=== PATIENT | male | born 1990 | race Caucasian/White ===

== ENCOUNTER 2020-07-22 08:43 | Outpatient (CLI) | payer OTHER, SELFPAY ==
--- NOTE | ~2020-07-22 | XR_ITS ---
EXAMINATION: XR barium swallow EXAM DATE: 07/22/2020 09:40 INDICATION: Dysphagia, gastroesophageal reflux disease. TECHNIQUE: Standard thick followed by thin contrast barium esophagram examination was performed. The DAP for this procedure was 1.5 Gycm2. There is no prior study for comparison. FINDINGS: The pharynx is symmetric and without evidence of mass lesion or mucosal irregularity. Ther e is no esophageal stricture or mass identified. There are no esophageal diverticula. Gastroesophag eal junction is normal in appearance. IMPRESSION: Normal exam. Reviewed, dictated and finalized at location A. INE ATTENDANT IMPRESSION: Normal exam.
== END 2020-07-22 08:44 | disposition home or self-care (01) ==
PROVIDERS: PCP Family Medicine Adolescent Medicine
DX: R13.12 Dysphagia, oropharyngeal phase (principal)
CPT/HCPCS: 74220

== ENCOUNTER → 2020-09-14 10:44 | Outpatient (CLI) | payer OTHER, SELFPAY ==
--- NOTE | ~2020-09-14 | US_ITS ---
US right upper quadrant INDICATION: Nausea and cramping. Reflux. PROCEDURE: Realtime right upper abdominal ultrasound. COMPARISON: CT dated 10/05/2016 FINDINGS: The pancreas is normal without focal mass or pancreatic ductal dilation. Liver echotexture is normal without focal mass or intrahepatic biliary dilatation. There is normal directional flow i n the portal vein. The gallbladder is normal without stones, gallbladder wall thickening or pericholecystic fluid. Comm on bile duct measures 3 mm. No sonographic Beltran's sign. Right renal echotexture is unremarkable. IMPRESSION: 1: Normal limited abdominal ultrasound. Reviewed, dictated and finalized at location B.
== END ==
PROVIDERS: PCP Family Medicine Adolescent Medicine
DX: R11.0 Nausea (principal)
CPT/HCPCS: 76705

== ENCOUNTER 2023-03-25 10:52 | Emergency (ER) | payer OTHER, SELFPAY ==
[2023-03-25 10:56] VITALS: BP 135/84; PULSE 109; RESP 20; TEMP 37.3; O2SAT 96
--- NOTE | 2023-03-25 11:37 | ED.URI ---
HPI - URI/Sore Throat General Chief Complaint: Upper Respiratory Infection Stated Complaint: respiratory Time Seen by Provider: 03/25/23 11:37 Source: patient Mode of arrival: ambulatory Limitations: no limitations History of Present Illness HPI Narrative: 32-year-old male presented for complaint of headache, body aches, sinus pressure/congestion, cough, fever/chills. onset 5 days. States he feels sob with exertion like going up stairs or with coughing fits. Endorses daughter has similar symptoms. Denies wheezing, n/v/d. Taking Sudafed, Mucinex, NyQuil for symptoms. Related Data Allergies Allergy/AdvReac Type Severity Reaction Status Date / Time hydrocodone AdvReac Severe Nausea and Verified 03/25/23 11:12 Vomiting Review of Systems Review of Systems: CONSTITUTIONAL: Reportbody aches, fever, chills, or sweats. EYES: Denies visual changes, redness, or discharge. ENT: reports rhinorrhea, congestion, denies sore throat, or otalgia. CARDIOVASCULAR: Denies chest pain, palpitations, or edema. RESPIRATORY: Reports cough, sob,denies wheezing. GASTROINTESTINAL: Denies abdominal pain, nausea, vomiting, or diarrhea. GENITOURINARY: Denies dysuria or hematuria. SKIN: Denies rash, itching, or wounds. MUSCULOSKELETAL: Denies back pain, joint pain, or myalgia. NEUROLOGIC: Denies numbness, tingling, or weakness. All systems reviewed & are unremarkable except as noted in HPI and below PMFSH Past Medical History Medical History (Updated 03/25/23 @ 12:06 by Amy Peres APRN) Anxiety disorder, unspecified Social History Social History Smoking status: Former smoker Tobacco type: cigarettes Smoking end date: 05/20/12 Alcohol intake: current Drinks per week: 3 Alcohol use details: weekends Substance use: never Lack of Transportation: No Lack of Food: Never True Current Housing: I Have Housing Concerned About Future Housing: No Difficulty Paying Gas/Electric Bills: No Difficulty Paying for Meds: No Currently Unemployed: No Education: Bachelor's Degree Difficulty w/ Childcare or Family Care: No Living arrangements: with family Additional living arrangements comments: and daughter Occupation/Education: occupation 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 Please see nursing chart for further information. There is no relevant family history pertinent to the presenting complaint Exam Narrative: GENERAL: mildly ill-appearing, in no acute distress. EYES: EOMI. No redness or drainage. Conjunctivae normal. ENT: Mucous membranes pink and moist. No rhinorrhea. TMs normal bilaterally. Throat erythematous. Uvula midline. NECK: Normal AROM. Supple. CHEST: No respiratory distress. Lungs clear to all shaver. HEART: Regular rate and rhythm. No murmur appreciated. ABDOMEN: Soft, nontender, nondistended, normal active bowel sounds. EXTREMITIES: Normal range of motion. No edema. SKIN: Warm, dry, no rash. Capillary refill normal. Normal skin turgor. NEURO: Alert and oriented x3. Gait steady. PSYCH: Normal affect. Course Course Emergency Course: Patient is aware of diagnosis, understands and agrees to treatment plan. Anticipatory guidance given. Patient agrees to follow-up as directed and is aware of reasons to seek care at the emergency department. Portions of this record may have been created with voice recognition software Level of Care: Express Care Visit Vital Signs Vital signs: Vital Signs Temperature 99.2 F 03/25/23 10:56 Pulse Rate 109 H 03/25/23 10:56 Respiratory Rate 20 03/25/23 10:56 Blood Pressure 135/84 03/25/23 10:56 Pulse Oximetry 96 03/25/23 10:56 Oxygen Delivery Room Air 03/25/23 10:56
== END 2023-03-25 12:10 | disposition home or self-care (01) ==
PROVIDERS: Emergency Provider Nurse Practitioner Family; PCP Family Medicine Adolescent Medicine
DX: B34.9 Viral infection, unspecified (principal); Z20.822 Contact with and (suspected) exposure to COVID-19; Z87.891 Personal history of nicotine dependence
CPT/HCPCS: 87426; 99213; C9803; G0463

== ENCOUNTER → 2023-04-16 15:56 | Outpatient (CLI) | payer OTHER, SELFPAY ==
--- NOTE | ~2023-04-16 | XR_ITS ---
EXAMINATION: XR chest 2V 04/16/2023 16:32 INDICATION: Cough with pleuritic pain PROCEDURE: 2 view chest COMPARISON: No prior studies for comparison. FINDINGS: The lungs are clear. The cardiomediastinal silhouette is within normal limits. There are no pleural effusions. There is no pneumothorax suspected. IMPRESSION: 1: NO ACUTE CARDIOPULMONARY DISEASE. Reviewed, dictated and finalized at location L. CHBOARD OPERATOR SUPERVISOR
== END ==
PROVIDERS: PCP Family Medicine Adolescent Medicine; Visit Provider Family Medicine Adolescent Medicine
DX: J18.9 Pneumonia, unspecified organism (principal); R05.9 Cough, unspecified
CPT/HCPCS: 71046

== ENCOUNTER 2024-10-12 15:36 | Emergency (ER) | payer OTHER, SELFPAY ==
--- OUTSIDE RECORDS SUMMARY | 2024-10-12 15:39 | XMS_ITS | Continuity of Care Document ---
Author Organization [facility] Address [address] [place] [address] Phone Care Team Providers Care Apple Turner Name Role Phone Demi Car MD Unavailable Unavailable Allergies, Adverse Reactions, Alerts Substance Reaction Status Criticality No Known Allergies Active No Inform ation Medications Medication Instructions Dosage Effective Dates (start - stop) Status Comments pantoprazole 20 mg tablet,delayed release take 1 tablet by oral route every day 20 MG - Active Dr. Demi Car amitriptyline 10 mg tablet take 3 tablet by oral route every day at bedtime for 2 weeks, then increase to 2 tabs at bedtime - Active Wal-Fex Allergy 180 mg tablet take 1 tablet by oral route every day 180 MG - Active fluticasone propionate 50 mcg/actuation nasal spray,suspension spray 1 - 4 spray by intranasal route every day in each nostril as needed 50-100 MCG - Active Procedures Procedure Date OFFICE [id number] OFFICE [id number] TELEPHONE E&M BY A PHYSICIAN; 11-20 LEANDRO GREYSON UPPER GI ENDOSCOPY BIOPSY DILATE ESOPHAGUS UNGUIDED TISSUE EXAM BY PATHOLOGIST OFFICE [id number] BODY MASS INDEX DOCD SYST BP LT 130 MM HG DIAST BP 80-89 MM HG Advance Directives Directive Yes / No Effective Date File Name No Information Encounters Encounter Description Practice Location Reason(s) For Visit Diagnoses Date Provider Providers [facility] [address] [place], [place], [id number] , [place] tel: [phone] [facility] No Information 2 Danielleecktonja Eldad. [address] [place] [address], [id number] , . tel: [phone] OFFICE [id number]-IUN-FQ [facility], [address], [place], [place], [id number] , tel: [phone] [facility] Telehealth (chief complaint)g erd check up (chief complaint) NauseaIrritable bowel syndrome with diarrhea 1 Bialecki Eldad. [address] [place] [address], [id number] , [place]. tel: [phone] Referring Provider: Demi Hodgson, [address] [place] [address], [address] . tel:[phone] OFFICE [id number]-XKO-PO [facility], [address], [place], [place], [id number] , tel: [phone] [facility] Telehealth (chief complaint)n ausea (chief complaint) GERD without esophagitisNausea 1 Bialecki Eldad. [address] [place] [address], [id number] , [place]. tel: [phone] Referring Provider: Td Daugherty, [address] [place] [address], [address]. tel:[phone] [facility], [address], [place], [place], [id number] , [place] tel: [phone] [facility] No Information 1 David Eugene. [address] [place] [address], [id number] , [place]. tel: [phone] [facility], [address], [place], [place], [id number] , tel: [phone] [facility] No Information 1 Bialecki Eldad. [address] [place] [address] [place], [id number] , [place]. tel: [phone] [facility], [address], [place], [place], [address] , [place] tel: [phone] [facility] Nausea 1 David Eugene. [address] [place], [place], [id number] , [place]. tel: [phone] TELEPHONE E&M BY A PHYSICIAN; 11-20 MINUTES [facility], [address], [place], [place], [id number] , [place] tel: [phone] [facility] Telehealth (chief complaint) Globus sensationGERD without esophagitisOropha ryngeal dysphagia 1 Josep Simms. [address] [place] [address], [id number] , [place]. tel: [phone] Referring Provider: Td Daugherty, [address] [place] [address], [place], [address]. tel:[phone] [facility], [address], [place], [place], [id number] , [place] tel: [phone] [facility] No Information 1 Josep Simms. [address] [place] [address], [id number] , [place]. tel: [phone] Referring Provider: Td Daugherty, [address] [place] [address], [place], [address]. tel:[phone] [facility], [address], [place], [place], [address] , [place] tel: [phone] [facility] No Information 1 Giorgio Reilly. [address] [place] [address], [address], [place]. tel: [phone] Referring Provider: Td Daugherty, [address] [place] [address], [place], [address]. tel:[phone] OFFICE [id number] [facility], [address], [place], [place], [address] , [place] tel: [phone] [facility] GRED (chief complaint) Globus sensation David Eugene. [address] [place], [place], [id number] , [place]. tel: [phone] Referring Provider: Td Daugherty, [address] [place] [address], [place], [address]. tel:[phone] Family History Family Member Type Diagnosis Age At Onset No Information Payers Payer name Insurance type Covered alliance party ID Authorshivani stubbs(s) TEO LACY CI [id number] Social History Type Description Quantity Date Captured Comments Alcohol Use Details Unknown Caffeine Use Details Unknown Tobacco Use Status No Information Smoking Status No Information Sex Male Chief Complaint And Reason For Visit No Information Reason For Referral Reason For Referral No Information Plan Of Treatment Date Type Action Status Referral Ordered: Ultrasound gallbladder Appointment date/timeframe: 09/14/2020 ordered Referral Ordered: Barium esophagram Appointment date/timeframe: 07/22/2020 ordered History Of Present Illness Encounter Date Complaint History Of Prese nt Illness gerd check up Telehealth Telehealth (comments) reviewed bolivar juarez , medications - in [place]. pantoprazole - tried to quite taking that helps but makes IBS worse, helps with throat. have not tried TCA yet. says gluten tests negative for allergy. sucrose test neg and spoke about it - gas and variable stool, occ loose stool now more rare, nausea gone, and bloat occasional, bloated after big meals . nausea Telehealth Telehealth (comments) protonix d aily, works better qod every q 3 days, probiotic prescribed by rotary shear worker helper. trying to FODMAP diet. wedding and events limit success lately. some days well and some bad days. cant find trigger. not as bad as in past. burning in throat with assoc nausea. nausea and irregular BM. not clearly related by stress. Telehealth Telehealth (comments) reviewed c juarez- 3-4 yrs - mostly nausea- lately nausea and swallow an reaction to foods. dilation better re chocking. bx neg. dexilant trial - seem worse despite healthy diet- quite meds 2-3 days and even worse- GI issues, BM stomach cramps new and burning and heartburn, prilosec before X 3 weeks, cimetidine. zantac worked - bowels back to normal. some const. constant burn in troat worse after eat. also chest sx. after eat and lay down. GRED 29 year old male that presents for GERD symptoms. Denies family history of IBD and colon cancer. Denies ETOH and tob use. Feels like throat burning that is bad. Has shooting stomach pain, is worse when laying down or sitting. Is on cimetidine but not helping. +Globus sensation, he feels like his throat is tightening up. Denies dysphagia. Denies changes in bowels. Had evaluation by ENT and has scope and was noted to have swollen adenoids, ENT was unsure if related to acid. Functional Status Date Functional Assessmen t No Information Instructions Date Instruction Additional Infor jessica Continue diet- low c arb/gluten/sugar as helping!SIBO test - understands cost involved to company - await resultsConsider low dose TCA when ready Related to Irritable bowel syndrome with diarrhea Handout Continue healthy t practicesCont PPI qod, offer 40mg dose if wantsReviewed benefit and risks of low dose TCA and to consider this once readyconsider gluten free diet F/u telehealth 3 months Related to GERD without esophagitis cont probiotic Related to Nause a Agreed to :Barium es ophagramAdjust GERD regimen to high dose Famotidine BID and sucralfate, wean or stop DexilantConsider motility testing nextPt has food allergy testing coming up Related to Globus sensation Start taking the ome prazole daily 30 minutes before the 1st meal of the dayStop taking the cimetidineWe are ordering an EGD, our office will call and get this scheduledFurther recommendations to follow after the procedureFollow up in the office after the procedure Related to Globus sensation Assessments Type Assessment Date No Information Patient Care Teams Name Effective Dates (start - stop) Status Members No Information
--- OUTSIDE RECORDS SUMMARY | 2024-10-12 15:39 | XMS_ITS | Clinical Summary ---
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 Gender Identity Not on file Sexual Orientation Not on file Plan of Treatment Health Maintenance Due Date Last Done Comments Hepatitis C Virus (HCV) Screening 1992 TdaP Immunization 1992 Hepatitis B Immunization (1 of 3 - 19+ 3-dose series) 11/05/2011 Influenza Immunization (#1) 2024 SARS-COV-2 Immunization ( season) 2024 Respiratory Syncytial Virus (RSV) Immunization (Adult) (1 - 1-dose 75+ series) 11/05/2067 Meningococcal Immunization (ACWY) Aged Out No longer eligible based on patient's age to complete this topic Pneumococcal Immunization Combined Aged Out No longer eligible based on patient's age to complete this topic Rotavirus Immunization Aged Out No lo nger eligible based on patient's age to complete this topic
--- OUTSIDE RECORDS SUMMARY | 2024-10-12 15:39 | XMS_ITS | Patient Health Record ---
Author Organization [facility] Address [address] [place] [address] [address] [place], [place] [id number] Care Team Providers Care Entry Table Operator Name Role Phone MACKENZIE GRIMM [phone] Reason For Referral No Information Medications Medication SIG (Take, Route, Fr equency, Duration) Notes Start Date End Date Status Flonase 50 MCG/ACT 1 puff in each nostr il Nasally Once a day Active Bertha Active Problems Problem Type SNOMED Code ICD Code Onset Dates Problem Status W/U Status Risk Notes Problem Allergic rhinitis caused by pollen (disorder) (57120148) Allergic rhinitis due to pollen (J30.1) Active confirmed Problem Allergic rhinitis (67875921) Other allergic rhinitis (J30.89) Active confirmed Problem Gastro-esophagea l reflux disease without esophagitis (234536254) Gastro-esophage al reflux disease without esophagitis (K21.9) Active confirmed Problem Dyspnea (396294396) Dyspnea, unspecified (R06.00) Active confirmed Problem Abdominal pain (54079724) Unspecified abdominal pain (R10.9) Active confirmed Problem Dysphagia (32263891) Dysphagia, unspecified (R13.10) Active confirmed Plan Of Treatment Pending Test Test Name Order Date PERCUTANEOUS SKIN TEST 07/21/2020 INTRADERMAL SKIN TEST 07/21/2020 BRONCHO EVAL 07/21/2020 Spirometry 07/21/2020 Insurance Providers Payer Name Payer Address Payer Phone Subscriber Number Group Number Insured Name Patient Relationship to Insured Coverage Start Date Coverage End Date [employer]ET[employer] Henrietta CARTY [id number] [place] CONTRERAS [id number] INOCENTE CARDNEAS Self - patient is the insured Medical (General) History Medical History History ICD Code Gerd Surgical History Surgery Date(Month/Year) balloon sinus surgery 2019
--- OUTSIDE RECORDS SUMMARY | 2024-10-12 15:39 | XMS_ITS | Patient Health Record ---
Author Organization [facility] Taye ambrosio Billing Info Address [address] [place] [address] Care Team Providers Care Radiation Officer Name Role Phone KERI VELAZQUEZ Primary Care Provider CORTEZ Johnson Unavailable [phone] Reason For Referral No Information Medications Medication SIG (Take, Route, Fr equency, Duration) Notes Start Date End Date Status Wal-Fex Active Sudafed Active Ranitidine HCl Activ e Bactrim DS 800-160 MG 1 tablet Orally tw ice daily for 14 day(s) 06/03/2018 Active PredniSONE 10 mg 3 tabs PO daily x 4 days, then 2 tabs PO daily x 4 days, then 1 tab PO daily x 4 days Orally As directed for 12 days 06/03/2018 Active Social History Tobacco Use: Social History Observation Description Date Details (start date - stop date) Former Smoker NA - NA Tobacco Status: Question Answer Notes Patient is a former smoker Problems Problem Type SNOMED Code ICD Code Onset Dates Problem Status W/U Status Risk Notes Problem 03871719 Chronic maxillary sinusitis (J32.0) Active confirmed Problem 92607628 Nasal congestion (R09.81) Active confirmed Plan Of Treatment No Information Insurance Providers Payer Name Payer Address Payer Phone Subscriber Number Group Number Insured Name Patient Relationship to Insured Coverage Start Date Coverage End Date [employer] PPO [address] [address] [place], [place] [id number] Ko Finley Self - patient is the insured [id number] [phone] Medical (General) History Medical History History ICD Code Sinus disease Reflux disease Surgical History Surgery Date(Month/Year) Colonoscopy
--- OUTSIDE RECORDS SUMMARY | 2024-10-12 15:40 | XMS_ITS | Continuity of Care Document ---
Author Organization [facility] Address [address] [place] [address] Phone Care Team Providers Care Networking Specialist Name Role Phone Demi Car MD Unavailable [...] MCG - Active Procedures Procedure Date OFFICE [id number] OFFICE [id number] TELEPHONE E&M BY A PHYSICIAN; 11-20 LEANDRO GREYSON UPPER GI ENDOSCOPY BIOPSY DILATE ESOPHAGUS UNGUIDED TISSUE EXAM BY PATHOLOGIST OFFICE [id number] BODY MASS INDEX DOCD SYST BP LT 130 MM HG DIAST BP 80-89 MM HG Advance Directives Directive Yes / No Effective Date File Name No Information Encounters Encounter Description Practice Location Reason(s) For Visit Diagnoses Date Provider Providers [facility] [address] [place], [id number] , [place] tel: [phone] [facility] No Information 2 Danielleecktonja Eldad. [address] [place] [address], [id number] , . tel: [phone] OFFICE [id number]-[id number]-MB [facility], [address], [place], [place], [address] , tel: [phone] [facility] Telehealth (chief complaint)g erd check up (chief complaint) NauseaIrritable bowel syndrome with diarrhea 1 Bialecki Eldad. [address] [place] [address], [id number] , [place]. tel: [phone] Referring Provider: Demi Hodgson, [address] [place] [address], [address] . tel:[phone] OFFICE [id number]-ZEY-RI [facility], [address], [place], [place], [address] , tel: [phone] [facility] Telehealth (chief complaint)n ausea (chief complaint) GERD without esophagitisNausea 1 Bialecki Eldad. [address] [place] [address], [id number] , [place]. tel: [phone] Referring Provider: Td Daugherty, [address] [place] [address], [address]. tel:[phone] [facility], [address], [place], [place], [id number] , [place] tel: [phone] [facility] No Information 1 David Eugene. [address] [place] [address], [id number] , [place]. tel: [phone] [facility], [address], [place], [place], [address] , tel: [phone] [facility] No Information 1 Bialecki Eldad. [address] [place] [address] [place], [id number] , [place]. tel: [phone] [facility], [address], [place], [place], [address] , [place] tel: [phone] [facility] Nausea 1 David Eugene. [address] [place], [place], [id number] , [place]. tel: [phone] TELEPHONE E&M BY A PHYSICIAN; 11-20 MINUTES [facility], [address], [place], [place], [address] , [place] tel: [phone] [facility] Telehealth (chief complaint) Globus sensationGERD without esophagitisOropha ryngeal dysphagia 1 Josep Simms. [address] [place] [address], [id number] , [place]. tel: [phone] Referring Provider: Td Daugherty, [address] [place] [address], [place], [address]. tel:[phone] [facility], [address], [place], [place], [address] , [place] tel: [phone] [facility] No Information 1 Josep Simms. [address] [place] [address], [id number] , [place]. tel: [phone] Referring Provider: Td Daugherty, [address] [place] [address], [place], [address]. tel:[phone] [facility], [address], [place], [address] , [place] tel: [phone] [facility] No Information 1 Giorgio Reilly. [address] [place] [address], [address], [place]. tel: [phone] Referring Provider: Td Daugherty, [address] [place] [address], [place], [address]. tel:[phone] OFFICE [id number]-[id number]-TD [facility], [address], [place], [address] , [place] tel: [phone] [facility] GRED (chief complaint) Globus sensation David Eugene. [address] [place], [place], [id number] , [place]. tel: [phone] Referring Provider: Td Daugherty, [address] [place] [address], [place], [address]. tel:[phone] Family History Family Member Type Diagnosis Age At Onset No Information Payers Payer name Insurance type Covered constitution party ID Authorshivani stubbs(s) TEO LACY CI [id number] Social History Type Description Quantity Date Captured [...] reviewed bolivar juarez , medications - in [place]. pantoprazole - tried to quite taking that [...] every q 3 days, probiotic prescribed by financial management analyst. trying to FODMAP diet. wedding and events [...]
[2024-10-12 15:41] VITALS: BP 129/87; PULSE 104; RESP 16; TEMP 36.6; O2SAT 98
--- NOTE | 2024-10-12 15:55 | ED_ITS ---
HPI - Skin/Abscess/Foreign Bdy General Chief complaint: Skin/Abscess/Foreign Body Stated complaint: Insect Bite/Right Leg Source: patient Mode of arrival: ambulatory Limitations: no limitations History of Present Illness HPI narrative: 33-year-old male presented for complaint of a red ring surrounding a puncture site on the right inner knee; which he says is a possible insect bite. first noticed 2 days ago. Says he did not remove a tick from the site but believes he was bit by an insect. Denies any other skin changes or concerns. Denies malaise or myalgia, n/v/d/f/c. Related Data Allergies Allergy/AdvReac Type Severity Reaction Status Date / Time hydrocodone AdvReac Severe Nausea and Verified 10/12/24 15:47 Vomiting Review of Systems Review of Systems: CONSTITUTIONAL: Denies body aches, fever, chills, or sweats. EYES: Denies visual changes, redness, or discharge. ENT: Denies rhinorrhea, congestion CARDIOVASCULAR: Denies chest pain, palpitations, or edema. RESPIRATORY: Denies cough or dyspnea. GASTROINTESTINAL: Denies abdominal pain, nausea, vomiting, or diarrhea. SKIN: per HPI MUSCULOSKELETAL: Denies back pain, joint pain, or myalgia. NEUROLOGIC: Denies headache, numbness, tingling, or weakness. [facility] Past Medical History Medical History Anxiety disorder, unspecified Social History Social History Smoking status: Former smoker Tobacco type: cigarettes Smoking end date: 05/20/12 Alcohol intake: current Drinks per week: 3 Alcohol use details: weekends Substance use: never Lack of Transportation: No Lack of Food: Never True Current Housing: I Have Housing Concerned About Future Housing: No Difficulty Paying Gas/Electric Bills: No Difficulty Paying for Meds: No Currently Unemployed: No Education: Bachelor's Degree Difficulty w/ Childcare or Family Care: No Living arrangements: with family Additional living arrangements comments: and daughter Occupation/Education: occupation 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 Please see nursing chart for further information. There is no relevant family history pertinent to the presenting complaint Exam Narrative: GENERAL: Well-appearing HEAD: Normocephalic, atraumatic. EYES: conjunctivae clear, and EOMI. ENT: Mucous membranes moist. Oropharynx without edema, erythema or lesions. NECK: Supple. No lymphadenopathy CHEST: Clear to auscultation. HEART: Regular rate and rhythm. SKIN: Warm, dry. Right medial knee with puncture site, surrounding pale red ring 3.5cm diameter with clear center, nontender, no fluctuance or drainage. No insect noted. NEURO: Alert and oriented x3. Course Course Emergency Course: Patient is aware of diagnosis, understands and agrees to treatment plan. Anticipatory guidance given. Patient agrees to follow-up as directed and is aware of reasons to seek care at the emergency department. Portions of this record may have been created with voice recognition software Level of Care: Express Care Visit Vital Signs Vital signs: Vital Signs Temperature 97.8 F 10/12/24 15:41 Pulse Rate 104 H 10/12/24 15:41 Respiratory Rate 16 10/12/24 15:41 Blood Pressure 129/87 10/12/24 15:41 Pulse Oximetry 98 10/12/24 15:41 Oxygen Delivery Room Air 10/12/24 15:41 Temperature 97.8 F 10/12/24 15:41 Pulse Rate 104 H 10/12/24 15:41 Respiratory Rate 16 10/12/24 15:41 Blood Pressure 129/87 10/12/24 15:41 Pulse Oximetry 98 10/12/24 15:41 Oxygen Delivery Room Air 10/12/24 15:41 Reviewed MDM - Skin/Abscess/Foreign Bdy MDM Narrative Medical decision making narrative: Discussed physical exam findings; will treat with 10 days doxy as precaution for red round [place] surrounding puncture site. Advised supportive measures and signs/symptoms to go to the ER. Pt is appropriate for outpt treatment and f/u. Differential Diagnosis Differential diagnosis: Likely abscess of skin or subcutaneous tissue, viral exanthem, dermatophytosis, urticaria, herpes zoster, cellulitis, eczema, insect bites, impetigo and contact dermatitis Discharge Plan Discharge Clinical Impression: Insect bites Patient Disposition: Home Condition: Stable Instructions: Antibiotic Form, Lyme Disease (ED) Additional Instructions: Keep the area clean and dry - cleanse with warm water and mild soap and allow to fully dry. Ok to apply neosporin to the site Keep it open to air (no bandages) Take the medication as directed Watch for worsening symptoms including pain, redness, swelling, streaking, pus/drainage, fever. Go to the ER with any of these symptoms or concerns. Follow up with primary care provider in 1-2 weeks as needed. Patient Language: Dominican Prescriptions: New doxycycline hyclate 100 mg tablet 100 mg PO BID 10 Days Qty: 20 0RF No Action albuterol sulfate 90 mcg/actuation HFA aerosol inhaler 2 inh inhalation QID PRN (Reason: shortness of breath or wheezing) Qty: 8.5 0RF alprazolam 0.25 mg tablet 0.25 mg PO BID PRN (Reason: anxiety) Qty: 20 0RF Follow-up/Referrals: Td Garcia MD [Primary Care Provider] - Time of Disposition: 16:02
== END 2024-10-12 16:06 | disposition home or self-care (01) ==
PROVIDERS: Emergency Provider Nurse Practitioner Family; PCP Family Medicine Adolescent Medicine
DX: S80.261A Insect bite (nonvenomous), right knee, initial encounter (principal); W57.XXXA Bitten or stung by nonvenomous insect and other nonvenomous arthropods, initial encounter; Z87.891 Personal history of nicotine dependence
CPT/HCPCS: 99213; G0463